=== PATIENT | male | born 1980 | race Caucasian/White ===

== ENCOUNTER 2016-10-04 07:22 | Emergency (ER) | payer SELFPAY ==
[2016-10-04 07:37] VITALS: TEMP 98.3
[2016-10-04] MEDS ORDERED: ORPHENADRINE CITRATE 30 MG/ML AMP IM ONE (07:42)
[2016-10-04] MEDS ORDERED: KETOROLAC TROMETHAMINE INJ 60 MG/2 ML VIAL IM ONE (07:42)
[2016-10-04] MEDS ORDERED: HYDROcodone 10MG/APAP 325MG 1 EA TAB PO ONE (07:42)
--- NOTE | 2016-10-04 07:47 | ED.PDOC ---
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 PT RECENTLY MOVED FROM [place], STATES HE NEEDS FAMILY DOCTOR AND PAIN MANAGEMENT BUT HAS NOT ESTABLISHED ONE YET. LAST MEDICATION USE APPROX 1 WEEK AGO IN [place] TOOK PERCOCET. Timing/Duration: 1-3 hours Improving Factors: nothing Worsening Factors: nothing Associated Symptoms: denies symptoms Allergies/Adverse Reactions: Allergies Corticosteroids Allergy (Verified 10/04/16 07:37) Lidocaine Allergy (Verified 10/04/16 07:37) Home Medications: Ambulatory Orders Tramadol HCl [Ultram] 50 mg PO Q6HR PRN #15 tab 10/04/16 Review of Systems - Review of Systems Constitutional: States: other - SEVERE GENERALIZED PAIN. Denies: chills, fever EENTM: Denies: ear pain, throat pain Respiratory: Denies: cough, short of breath, wheezing Cardiology: Denies: chest pain, palpitations Gastrointestinal/Abdominal: Denies: abdominal pain, nausea, vomiting Genitourinary: States: no symptoms reported Musculoskeletal: Denies: joint pain, joint swelling, muscle pain Skin: States: lumps. Denies: dryness, lesions, rash Neurological: Denies: numbness, tingling Endocrine: States: no symptoms reported Hematologic/Lymphatic: States: no symptoms reported Past Medical History (General) - Patient Medical History Hx Asthma: No Hx Diabetes: No Hx Other - free text: DERCUMS DZ Surgical History: tonsillectomy - Vaccination History Hx Tetanus, Diphtheria Vaccination: No Hx Influenza Vaccination: Yes Hx Pneumococcal Vaccination: No - Social History Hx Tobacco Use: No Hx Alcohol Use: No Hx Substance Use: No Hx Substance Use Treatment: No Hx Depression: No - Activities of Daily Living Hospice Agency (if applicable):: None - Female History Patient is a Female of Child Bearing Age (10 -59 yrs old): No Patient : No Family Medical History - Family History Mother Family History: Unknown Physical Exam - Physical Exam General Appearance: Anxious, Other - MOD DISTRESS DTP Eye Exam: bilateral normal Ears, Nose, Throat: hearing grossly normal, normal ENT inspection Neck: non-tender, full range of motion, supple, normal inspection Respiratory: lungs clear, normal breath sounds Cardiovascular/Chest: regular rate, rhythm, no murmur Gastrointestinal/Abdominal: normal bowel sounds, non tender, soft, no organomegaly Back Exam: normal inspection, no CVA tenderness, no vertebral tenderness Extremity: normal range of motion, non-tender, normal inspection Neurologic: no motor/sensory deficits, alert Skin Exam: normal color, other - PT HAS APPROX 5-10 VISIBLE LIPOMAS MERRY UE'S AND LOWER LUMBAR AREA. DIFFUSE TTP UPPER ARMS AND BACK Lymphatic: no adenopathy Progress - Progress Progress: 10/04/16 08:29 FEELS MUCH BETTER. RESTING COMFORTABLY ON BED. Departure - Departure Clinical Impression: Dercum's disease Time of Disposition: 08:30 Disposition: Discharge to Home or Self Care Condition: Excellent Departure Forms: ED Discharge - Pt. Copy, Patient Portal Self Enrollment Instructions: Non-Medication Pain Relief for Chronic Pain Prescriptions: Tramadol HCl [Ultram] 50 mg PO Q6HR PRN #15 tab PRN Reason: Pain Home Medications: Ambulatory Orders Tramadol HCl [Ultram] 50 mg PO Q6HR PRN #15 tab 10/04/16
[2016-10-04 08:48] VITALS: BP 121/84; O2SAT 96
== END 2016-10-04 08:40 | disposition home or self-care (01) ==
LOC: ER 07:22
DX: E88.2 Lipomatosis, not elsewhere classified (principal); Z88.8 Allergy status to other drugs, medicaments and biological substances; Z88.4 Allergy status to anesthetic agent
CPT/HCPCS: J1885; J2360